=== PATIENT | female | born 1935 | race Caucasian/White ===

== ENCOUNTER 2017-10-09 11:58 | Emergency (ER) | payer SELFPAY ==
--- NOTE | 2017-10-09 12:01 | ED MVC/FALL/TRAUMA COMPLAINT ---
History of Present Illness General Chief Complaint: General Adult Stated Complaint: FALL, ELEVATED BLOOD PRESSURE Source: patient, EMS Exam Limitations: no limitations Vital Signs & Intake/Output Vital Signs & Intake/Output Vital Signs Date Time Temp Pulse Resp B/P B/P Pulse O2 O2 Flow FiO2 Mean Ox Delivery Rate 10/09 1313 98.2 104 19 170/94 97 Room Air 10/09 1203 98.4 10/09 1201 122 17 187/108 96 Room Air Allergies Coded Allergies: No Known Allergies (10/09/17) Triage Nurses Notes Reviewed? yes Onset: Abrupt Duration: better, gone now Timing: single episode today Severity: mild Severity Numbers: 1 Method of Injury: fall HPI: Patient is a 82-year-old female with an unremarkable past medical history who lives in a private residence by herself who states that today she was in her normal state of health or patient was using a push mower to cut her grass where she tripped on the ground falling forward where a bystander witnessed event in which patient complains of lower extremity shakiness where she was helped up and ambulated with assistance to her garage where EMS arrived on scene and patient refused EMS services however she states that EMS convinced her to present to the emergency room for concerns of her blood pressure and heart rate patient states that she was just nervous. Patient currently is without complaints denies any fever chills head strike loss of consciousness dizziness chest pain arm pain jaw pain extremity weakness paresthesia blurred vision. Patient did not eat breakfast this morning Patient denies any pain or trauma Nursing states that blood sugar on arrival was 300 (Aashish Lopez) Past History Medical History Any Pertinent Medical History? none Surgical History Surgical History: non-contributory Family History Hx Contributory? No (Aashish Lopez) Review of Systems Review of Systems Constitutional: Reports: see HPI. Eyes: Reports: no symptoms. Ears, Nose, Throat, Mouth: Reports: no symptoms. Respiratory: Reports: no symptoms. Cardiovascular: Reports: no symptoms. Gastrointestinal/Abdominal: Reports: no symptoms. Genitourinary: Reports: no symptoms. Musculoskeletal: Reports: no symptoms. Skin: Reports: no symptoms. Neurological/Psychological: Reports: no symptoms. All Other Systems: Reviewed and Negative (Aashish Lopez) Physical Exam Physical Exam General Appearance: no apparent distress, alert, comfortable Head: atraumatic Eyes: Bilateral: normal appearance, PERRL, EOMI. Ears, Nose, Throat, Mouth: hearing grossly normal Neck: normal inspection, supple, no midline tenderness Respiratory: normal breath sounds, chest non-tender, no respiratory distress Cardiovascular: tachycardia Peripheral Pulses: 2+ radial (R) Gastrointestinal: normal bowel sounds, soft, non-tender Extremities: normal range of motion Neurologic/Psych: no motor/sensory deficits, awake, alert, oriented x 3, normal gait, physician interventional cardiologist II-XII nml as tested Skin: intact, normal color, warm/dry Comments: Bilateral lower extremity and upper extremity myotomes dermatomes DTRs intact full active range of motion nontender extremities Core Measures ACS in differential dx? Yes CVA/TIA Diagnosis No Sepsis Present: No Sepsis Focused Exam Completed? No (Aashish Lopez) Progress Differential Diagnosis: abd injury, C/T/L spine injury, ext injury, ICH, pelvis injury, pnemothorax, spinal cord injury Plan of Care: Patient on arrival was asymptomatic however noted tachycardia and blood sugar was elevated I strongly advised patient to received valuation of blood work and EKG however she states that she did not want to receive any evaluation for her episode today and requested to be discharged. I discussed the risks of leaving AGAINST MEDICAL ADVICE patient was alert and oriented at capacity to make decisions for herself Patient states that she is currently looking to get into assisted care living Patient signed AMA form Patient had normal steady gait witnessed by me and nursing staff DISCUSSED PT WITH DR. BURRIS WHO WAS AWARE Patient received hospital PAID [facility] (Aashish Lopez) Departure Departure Disposition: LEFT AGAINST MEDICAL ADVICE Condition: Stable Clinical Impression Primary Impression: Fall Secondary Impressions: Hyperglycemia Additional Instructions: As discussed you are leaving AGAINST MEDICAL ADVICE and symptoms may worsen, if symptoms worsen return to emergency room, on Monday please follow up with your primary care doctor. Departure Forms: Customer Survey General Discharge Information (Aashish Lopez) PA/TECHNICAL TRAINING COORDINATOR Co-Sign Statement Statement: ED Attending supervision documentation- [] I saw and evaluated the patient. I have also reviewed all the pertinent lab results and diagnostic results. I agree with the findings and the plan of care as documented in the PA's/TECHNICAL TRAINING COORDINATOR's documentation. [] I have reviewed the ED Record and agree with the PA's/TECHNICAL TRAINING COORDINATOR's documentation. [X] Additions or exceptions (if any) to the PAs/TECHNICAL TRAINING COORDINATOR's note and plan are summarized below: [] (Orestes Burris DO)
== END 2017-10-09 13:14 | disposition left against medical advice (07) ==
LOC: ERH 11:58
DX: Z04.3 Encounter for examination and observation following other accident (principal); R73.9 Hyperglycemia, unspecified